=== PATIENT | female | born 1950 | race Caucasian/White ===

== ENCOUNTER 2016-10-01 05:32 | Day surgery (SDC) | payer MEDICARE ==
[~2016-10-01] VITALS: Ht 160 cm; Wt 56.8 kg
[~2016-10-01 05:32] MED LIST: EPHEDrine SULFATE 50 MG/ML VIAL IM ONE; FentaNYL CITRATE-PF 250 MCG/5 ML VIAL IVP ONE; KETAMINE HCL 50 MG/ML 10 ML VIAL IVP ONE; MIDAZOLAM HCL 2 MG/2 ML VIAL IVP ONE; PROPOFOL 1% 20 ML VIAL IVP ONE; SUCCINYLCHOLINE CHLORIDE 20 MG/ML 10 ML VIAL IVP ONE
[2016-10-01] MEDS ORDERED: SODIUM CHLORIDE 0.9% 1,000 ML IV ONE ×2 (05:50→06:00)
[2016-10-01] MEDS ORDERED: CeFAZolin 1 GM/DEXTROSE 50 ML IV ONE ×2 (05:50→06:00)
[2016-10-01] MEDS ORDERED: LORazepam 2 MG/ML VIAL IVP PRN (06:00)
[2016-10-01 06:26] LABS: BASOPHILS # (AUTO) 0.04 K/uL (0.00-0.20); BASOPHILS % (AUTO) 0.5 % (0.0-2.0); EOSINOPHILS # (AUTO) 0.27 K/uL (0.00-0.70); EOSINOPHILS % (AUTO) 3.28 % (1.0-6.0); HEMATOCRIT 42.7 % (36-46); LYMPHOCYTES % (AUTO) 25.2 % (22.0-44.0); MEAN CORPUSCULAR HEMOGLOBIN 30.3 pg (26.0-34.0); MEAN CORPUSCULAR HGB CONC 32.7 G/dL (31.0-37.0); MEAN CORPUSCULAR VOLUME 93 fL (80-100); MONOCYTES # (AUTO) 0.7 K/uL (0.1-1.0); MONOCYTES % (AUTO) 8.2 % (2.0-9.0); NEUTROPHILS # (AUTO) 5.1 K/uL (1.8-7.7); NEUTROPHILS % (AUTO) 62.8 % (40.0-70.0); PLATELET COUNT (AUTO) 258 K/uL (150-450); RED BLOOD CELL COUNT(AUTO) 4.61 MIL/uL (4.00-5.20); RED CELL DISTRIBUTION WIDTH 13.1 % (11.5-14.5); WHITE BLOOD COUNT (AUTO) 8.1 K/uL (4.5-11.0)
[2016-10-01 06:31] LABS: INR 1.1 (0.9-1.1); PROTHROMBIN TIME 11.4 SEC (9.4-11.6)
[2016-10-01 06:51] LABS: ALBUMIN 3.4 g/dL (3.4-5.0); BILIRUBIN,TOTAL 0.6 mg/dL (0.1-1.0); CALCIUM, TOTAL 8.9 mg/dL (8.8-10.5); POTASSIUM 4.4 mmol/L (3.5-5.1); TOTAL PROTEIN, SERUM 6.5 g/dL (6.4-8.2)
[2016-10-01] MEDS ORDERED: BIOT10004 PO (06:57)
[2016-10-01] MEDS ORDERED: BUPR100T13 PO (06:57)
[2016-10-01] MEDS ORDERED: DIPH25TA2 PO (06:57)
[2016-10-01] MEDS ORDERED: LOSA50TA37 PO (06:57)
[2016-10-01] MEDS ORDERED: ATEN100T PO (06:57)
[2016-10-01] MEDS ORDERED: IOVERSOL 350 MG/ML 50 ML VIAL ONE (07:20)
[2016-10-01] MEDS ORDERED: SODIUM CHLORIDE 0.9% 0 ML ONE (07:21)
[2016-10-01] MEDS ORDERED: SODIUM CHLORIDE 0.9% 1,000 ML IV SCH (09:16)
[2016-10-01] MEDS ORDERED: HYDROmorphone 2 MG/ML SYRINGE IVP PRN ×2 (09:30→10:00)
[2016-10-01] MEDS ORDERED: HYDROmorphone HCL 2 MG TABLET PO ONE (09:30)
[2016-10-01] MEDS ORDERED: OxyCODONE HCL/ACETAMINOPHEN 5-325 MG TABLET PO PRN ×2 (09:30)
[2016-10-01] MEDS ORDERED: FentaNYL CITRATE-PF 100 MCG/2 ML VIAL IVP PRN (10:00)
[2016-10-01] MEDS ORDERED: OXYGEN THERAPY IH SCH (10:00)
[2016-10-01] MEDS ORDERED: ONDANSETRON HCL 4 MG/2 ML VIAL IVP PRN (10:00)
== END 2016-10-01 12:55 | disposition home or self-care (01) ==
LOC: SDS 05:32 → EDSTATUS 07:30 → SDS 12:55
PROVIDERS: ATTEND Radiology Diagnostic Radiology
DX: C34.92 Malignant neoplasm of unspecified part of left bronchus or lung (principal); C78.7 Secondary malignant neoplasm of liver and intrahepatic bile duct; I10 Essential (primary) hypertension; E78.5 Hyperlipidemia, unspecified; F32.9 Major depressive disorder, single episode, unspecified; Z88.2 Allergy status to sulfonamides; Z91.013 Allergy to seafood; Z72.89 Other problems related to lifestyle; Z90.49 Acquired absence of other specified parts of digestive tract; Z98.890 Other specified postprocedural states; Z82.49 Family history of ischemic heart disease and other diseases of the circulatory system
CPT/HCPCS: 0340T; 36415; 71010; 80053; 85025; 85610; 93005; 94002; C2618; J0690; J7030; J0330; J2250; J2704; J3010; J3490; J7050

== ENCOUNTER 2016-12-24 06:09 | Day surgery (SDC) | payer MEDICARE ==
[~2016-12-24] VITALS: Ht 157.5 cm; Wt 50.9 kg
[~2016-12-24 06:09] MED LIST changes: +ATEN100T PO; +BIOT10004 PO; +BUPR100T13 PO; +DIPH25TA2 PO; -EPHEDrine SULFATE 50 MG/ML VIAL IM ONE; -FentaNYL CITRATE-PF 250 MCG/5 ML VIAL IVP ONE; -KETAMINE HCL 50 MG/ML 10 ML VIAL IVP ONE; +LOSA50TA37 PO; -MIDAZOLAM HCL 2 MG/2 ML VIAL IVP ONE; -PROPOFOL 1% 20 ML VIAL IVP ONE; +SODIUM CHLORIDE 0.9% 1,000 ML IV ONE; -SUCCINYLCHOLINE CHLORIDE 20 MG/ML 10 ML VIAL IVP ONE
[2016-12-24] MEDS ORDERED: CeFAZolin 1 GM/DEXTROSE 50 ML IV ONE ×2 (06:20→07:00)
[2016-12-24] MEDS ORDERED: SODIUM CHLORIDE 0.9% 1,000 ML IV ONE ×3 (06:20→17:45)
[2016-12-24] MEDS ORDERED: LORazepam 2 MG/ML VIAL IVP PRN (06:30)
[2016-12-24] MEDS ORDERED: LORazepam 2 MG/ML VIAL ONE (07:11)
[2016-12-24 07:21] LABS: ALANINE AMINOTRANSFERASE 28 U/L (12-78); ALBUMIN 3.8 g/dL (3.4-5.0); ANION GAP 9 mmol/L (8-16); ASPARTATE AMINOTRANSFERASE 19 U/L (15-37); BILIRUBIN,TOTAL 0.7 mg/dL (0.1-1.0); CALCIUM, TOTAL 9.4 mg/dL (8.8-10.5); CARBON DIOXIDE 27 mmol/L (22-29); CHLORIDE 105 mmol/L (98-107); CREATININE 0.79 mg/dL (0.60-1.30); GLOMERULAR FILTR. RATE CALC > 60 mL/min (>60); SODIUM SERUM 141 mmol/L (136-145); UREA NITROGEN, BLOOD 26 mg/dL (7-18)
[2016-12-24 07:25] LABS: BASOPHILS % (AUTO) 0.4 % (0.0-2.0); EOSINOPHILS % (AUTO) 0.7 % (1.0-6.0); HEMATOCRIT 42.3 % (36-46); HEMOGLOBIN 14.4 g/dL (12.0-16.0); LYMPHOCYTES # (AUTO) 1.6 K/uL (1.0-4.8); LYMPHOCYTES % (AUTO) 20.2 % (22.0-44.0); MEAN CORPUSCULAR HEMOGLOBIN 30.9 pg (26.0-34.0); MEAN CORPUSCULAR HGB CONC 33.9 G/dL (31.0-37.0); MEAN CORPUSCULAR VOLUME 91 fL (80-100); MONOCYTES # (AUTO) 0.5 K/uL (0.1-1.0); MONOCYTES % (AUTO) 6.6 % (2.0-9.0); NEUTROPHILS # (AUTO) 5.7 K/uL (1.8-7.7); NEUTROPHILS % (AUTO) 72.1 % (40.0-70.0); PLATELET COUNT (AUTO) 266 K/uL (150-450); RED BLOOD CELL COUNT(AUTO) 4.65 MIL/uL (4.00-5.20); RED CELL DISTRIBUTION WIDTH 14.4 % (11.5-14.5); WHITE BLOOD COUNT (AUTO) 7.9 K/uL (4.5-11.0)
[2016-12-24] MEDS ORDERED: FentaNYL CITRATE-PF 100 MCG/2 ML VIAL ONE ×4 (07:25→12:05)
[2016-12-24] MEDS ORDERED: MIDAZOLAM HCL 2 MG/2 ML VIAL ONE ×3 (07:26→12:05)
[2016-12-24] MEDS ORDERED: LIDOCAINE HCL/PF 1% 30 ML VIAL ONE ×2 (07:56)
[2016-12-24 08:01] LABS: PROTHROMBIN TIME 10.7 SEC (9.4-11.6)
[2016-12-24] MEDS ORDERED: FentaNYL CITRATE-PF 100 MCG/2 ML VIAL IVP ONE (13:24)
[2016-12-24] MEDS ORDERED: MIDAZOLAM HCL 5 MG/ML VIAL IVP ONE (13:29)
[2016-12-24] MEDS ORDERED: SODIUM CHLORIDE 0.9% 1,000 ML IV SCH (13:53)
[2016-12-24] MEDS ORDERED: OxyCODONE HCL/ACETAMINOPHEN 5-325 MG TABLET PO PRN ×2 (14:00)
[2016-12-24] MEDS ORDERED: HYDROmorphone 2 MG/ML SYRINGE IVP PRN (14:00)
[2016-12-24] MEDS ORDERED: HYDROmorphone HCL 2 MG TABLET PO ONE ×2 (14:00→16:15)
[2016-12-24] MEDS ORDERED: HYDROmorphone 2 MG/ML SYRINGE ONE (14:29)
[2016-12-24] MEDS ORDERED: PROMETHAZINE HCL 25 MG/ML VIAL IM SCH (16:28)
[2016-12-24] MEDS ORDERED: PROMETHAZINE HCL 25 MG/ML VIAL ONE (16:37)
[2016-12-24] MEDS ORDERED: RINGERS SOLUTION,LACTATED 1,000 ML IV ONE (17:30)
[2016-12-24] MEDS ORDERED: HYDROmorphone HCL 2 MG TABLET ONE (17:58)
== END 2016-12-24 18:40 | disposition home or self-care (01) ==
LOC: RADMN 06:09
PROVIDERS: ATTEND Radiology Diagnostic Radiology
DX: C34.92 Malignant neoplasm of unspecified part of left bronchus or lung (principal); C78.7 Secondary malignant neoplasm of liver and intrahepatic bile duct; J93.9 Pneumothorax, unspecified; F32.9 Major depressive disorder, single episode, unspecified; E78.5 Hyperlipidemia, unspecified; I10 Essential (primary) hypertension; Z88.2 Allergy status to sulfonamides; Z91.013 Allergy to seafood; Z90.49 Acquired absence of other specified parts of digestive tract; Z98.890 Other specified postprocedural states; Z80.1 Family history of malignant neoplasm of trachea, bronchus and lung; Z80.0 Family history of malignant neoplasm of digestive organs
CPT/HCPCS: 0340T; 36415; 36561; 47383; 71010; 71250; 72192; 74150; 76937; 77001; 80053; 85025; 85610; 99152; 99153; C2618; J0690; J1170; J2060; J2250 ×2; J2550; J3010; J3490; J7030; 36245